=== PATIENT | female | born 1995 | race Caucasian/White ===

== ENCOUNTER 2017-03-13 11:26 | Inpatient (IN) | payer OTHER ==
[~2017-03-13] VITALS: Ht 165.1 cm; Wt 93.0 kg
[2017-03-13] MEDS ORDERED: OXYTOCIN 20 UNITS/LR PREMIX 1,000 ML IV SCH (12:04)
[2017-03-13] MEDS ORDERED: OXYTOCIN 10 UNITS/ML VIAL IM SCH (12:05)
[2017-03-13] MEDS ORDERED: METHYLERGONOVINE 0.2 MG/ML AMP IM SCH (12:05)
[2017-03-13] MEDS ORDERED: PROMETHAZINE 25 MG/ML VIAL IVP PRN (12:05)
[2017-03-13] MEDS ORDERED: NALBUPHINE 10 MG/ML AMP IVP PRN (12:05)
[2017-03-13] MEDS ORDERED: IBUPROFEN 800 MG TAB PO PRN (12:05)
[2017-03-13] MEDS ORDERED: PREN-546 PO (12:13)
[2017-03-13 12:27] LABS: BASOPHILS # (AUTO) 0.1 K/uL (0.00-0.22); BASOPHILS % (AUTO) 0.6 % (0.0-2.0); EOSINOPHILS # (AUTO) 0.1 K/uL (0-0.4); EOSINOPHILS % (AUTO) 1.6 % (0.0-4.0); HEMATOCRIT 36.3 % (36-48); HEMOGLOBIN 12.2 g/dL (12.0-16.0); LYMPHOCYTES % (AUTO) 11.8 % (20.5-51.1); MEAN CORPUSCULAR HEMOGLOBIN 29 pg (27-31); MEAN CORPUSCULAR HGB CONC 34 g/dL (33-37); MEAN CORPUSCULAR VOLUME 87 fL (80-94); MONOCYTES # (AUTO) 0.4 K/uL (0.8-1.0); NEUTROPHILS # (AUTO) 6.9 K/uL (1.8-7.7); PLATELET COUNT (AUTO) 170 K/uL (140-450); RED BLOOD CELL COUNT(AUTO) 4.17 MIL/uL (4.20-5.40); RED CELL DISTRIBUTION WIDTH 14.3 % (11.6-13.7); WHITE BLOOD COUNT (AUTO) 8.5 K/uL (4.8-10.8)
[2017-03-13 12:31] LABS: BILIRUBIN,URINE NEGATIVE (NEGATIVE); BLOOD, URINE 1+ (NEGATIVE); COLOR,URINE YELLOW (YELLOW); LEUKOCYTE ESTERASE ,URINE NEGATIVE (NEGATIVE); NITRITE, URINE NEGATIVE (NEGATIVE); PROTEIN,URINE TRACE (NEGATIVE); UGLUCOSE NEGATIVE (NEGATIVE)
[2017-03-13 12:38] LABS: APPEARANCE,URINE SL. HAZY (CLEAR)
[2017-03-13 12:39] LABS: BACTERIA,URINE OCCASSIONAL /HPF (None Seen); CALCIUM OXALATE CRYSTALS,UR 0-10 /HPF (None Seen); MUCUS,URINE 1+ /LPF (None Seen); SQUAMOUS EPITHELIAL CELL,UR 4-10 (MOD) /LPF (0-3 (FEW)); WBC,URINE 0-5 (RARE) /HPF (0-5)
[2017-03-13 12:41] LABS: AMPHETAMINE, URINE NEG. ng/ml (NEG <=1000); BARBITURATE, URINE NEG. ng/ml (NEG <=200); BENZODIAZEPINE, URINE NEG. ng/mL (NEG <=200); CANNABINOID, URINE NEG. ng/mL (NEG <=50); COCAINE, URINE NEG. ng/mL (NEG <=300); OPIATE, URINE NEG. ng/mL (NEG <=2000); PHENCYCLIDINE SCREEN,URINE NEG. ng/mL (NEG <=25)
[2017-03-13] MEDS ORDERED: MISOPROSTOL 25 MCG TAB ONE ×2 (13:09→21:34)
[2017-03-13] MEDS: MISOPROSTOL 25 MCG TAB VG SCH ×2 (13:15→21:40)
[2017-03-13] MEDS: LACTATED RINGERS 1,000 ML IV SCH (13:36)
[2017-03-14] MEDS ORDERED: MISOPROSTOL 25 MCG TAB ONE (01:37)
[2017-03-14] MEDS: MISOPROSTOL 25 MCG TAB VG SCH (01:38)
[2017-03-14] MEDS ORDERED: NALBUPHINE HYDROCHLORIDE 10 MG/ML VIAL ONE (04:51)
[2017-03-14] MEDS ORDERED: PROMETHAZINE 25 MG/ML VIAL ONE (04:52)
[2017-03-14] MEDS ORDERED: OXYTOCIN 20 UNITS/LR PREMIX 1,000 ML IV ONE (05:38)
[2017-03-14] MEDS ORDERED: ROPIVACAINE 0.2%/NS PREMIX 250 ML EPI ONE (08:34)
[2017-03-14] MEDS: LACTATED RINGERS 1,000 ML IV SCH (08:51)
--- NOTE | 2017-03-14 09:13 | NUR ---
PATIENT HAS BEEN SCREENED AND CATEGORIZED LOW RISK. PATIENT WILL BE SEEN WITHIN 7 DAYS OF ADMISSION. 03/20/[address]
[2017-03-14] MEDS ORDERED: AMPICILLIN 2,000 MG VIAL ONE (13:57)
[2017-03-14] MEDS ORDERED: AMPICILLIN 2,000 MG in NACL 0.9% 100 ML IV SCH (14:00)
[2017-03-14] MEDS ORDERED: OXYTOCIN 10 UNITS/ML VIAL ONE (16:47)
[2017-03-14] MEDS ORDERED: WITCH HAZEL 40 PAD PACKAGE TP PRN (20:05)
[2017-03-14] MEDS ORDERED: SODIUM PHOSPHATE 118 ML ENEM RC PRN (20:05)
[2017-03-14] MEDS ORDERED: BENZOCAINE/MENTHOL 20%-0.5% 60 GM CAN TP PRN (20:05)
[2017-03-14] MEDS ORDERED: oxyCODONE/APAP 5/325 MG 1 TAB TAB PO PRN (20:05)
[2017-03-14] MEDS ORDERED: MEASLES, MUMPS, AND RUBELLA 1 VIAL SQVAC PRN (20:05)
[2017-03-14] MEDS ORDERED: HYDROcodone/APAP 5/325 MG 1 TAB TAB PO PRN (20:05)
[2017-03-14] MEDS ORDERED: TEMAZEPAM 15 MG CAP PO PRN (20:05)
[2017-03-14] MEDS ORDERED: oxyCODONE/APAP 5/325 MG 1 TAB TAB ONE (20:12)
[2017-03-14] MEDS ORDERED: DOCUSATE SOD/SENNA 50/8.6 MG 1 TAB PO SCH (21:00)
[2017-03-15 06:49] LABS: HEMATOCRIT 25.5 % (36-48); HEMOGLOBIN 8.7 g/dL (12.0-16.0)
[2017-03-15] MEDS: IBUPROFEN 800 MG TAB PO PRN ×2 (10:11→19:04)
[2017-03-16] MEDS: IBUPROFEN 800 MG TAB PO PRN (08:22)
[2017-03-16] MEDS ORDERED: IBUP-1842 PO (11:32)
== END 2017-03-16 17:45 | disposition home or self-care (01) | DRG 775 ==
LOC: MLD 11:26 → MFCC 03-14 20:38
PROVIDERS: ADMIT Obstetrics & Gynecology; ATTEND Obstetrics & Gynecology
PROC: 10D07Z6 Extraction of Products of Conception, Vacuum, Via Natural or Artificial Opening (ICD-10-PCS; principal; 2017-03-14)
PROC: 10907ZC Drainage of Amniotic Fluid, Therapeutic from Products of Conception, Via Natural or Artificial Opening (ICD-10-PCS; 2017-03-14)
PROC: 0W8NXZZ Division of Female Perineum, External Approach (ICD-10-PCS; 2017-03-14)
PROC: 3E0P7GC Introduction of Other Therapeutic Substance into Female Reproductive, Via Natural or Artificial Opening (ICD-10-PCS; 2017-03-14)
PROC: 00HU33Z Insertion of Infusion Device into Spinal Canal, Percutaneous Approach (ICD-10-PCS; 2017-03-14)
PROC: 3E0R3CZ (ICD-10-PCS; 2017-03-14)
DX: O69.81X0 Labor and delivery complicated by cord around neck, without compression, not applicable or unspecified (principal); O75.81 Maternal exhaustion complicating labor and delivery; Z3A.39 39 weeks gestation of pregnancy; Z37.0 Single live birth; Z28.21 Immunization not carried out because of patient refusal
CPT/HCPCS: 36415; 59200; 80305; 81001; 85018; 85025; 86592; 86886; 86900; 86901; J0290; J2300; J2550; J2590; J2795; J7120